=== PATIENT | female | born 1960 | race Caucasian/White ===

== ENCOUNTER 2019-05-16 09:25 | Emergency (ER) | payer OTHER ==
[~2019-05-16] VITALS: Ht 170.2 cm; Wt 82.6 kg
[~2019-05-16 09:25] MED LIST: AMLO-150 PO; ATOR40TA78 PO; BIOT300T5 PO; CYCL-259 PO; ENAL20TA PO; ERGO500017 PO; LINA5TAB PO; LORA10TA72 PO; OMEG1CAP34 PO; SODI650T PO
--- NOTE | 2019-05-16 10:01 | NUR ---
PT TO ED AFTER TRIPPING OVER DOG YESTERDAY AT 2130. PT STATES SHE HELD OUT LEFT ARM TO CATCH HERSELF AND HEARD TWO LOUD "POP" NOISES WHEN ARM HIT AGAINST WALL. PT STATES TYLENOL IS NO LONGER HELPING PAIN. PT STATES PAIN WORSE WITH MOVEMENT. PT ABLE TO TOUCH LEFT HAND TO RIGHT SHOULDER. PT CONNECTED TO MONTIORS. VSS. XR ORDER RECEVED ADN COMPLETED. AWAITING XR RESULTS AND EDMD ASSESSMENT.
[2019-05-16] MEDS ORDERED: KETOROLAC 30 MG/1 ML IM ONE (10:30)
[2019-05-16] MEDS ORDERED: KETOROLAC 30 MG/1 ML ONE (10:31)
[2019-05-16 11:14] VITALS: BP 143/71
== END 2019-05-16 11:17 | disposition home or self-care (01) ==
LOC: ED 10:26
DX: S43.422A Sprain of left rotator cuff capsule, initial encounter (principal); E11.22 Type 2 diabetes mellitus with diabetic chronic kidney disease; I12.0 Hypertensive chronic kidney disease with stage 5 chronic kidney disease or end stage renal disease; N18.6 End stage renal disease; W18.30XA Fall on same level, unspecified, initial encounter; Y93.89 Activity, other specified; Y92.009 Unspecified place in unspecified non-institutional (private) residence as the place of occurrence of the external cause; Y99.8 Other external cause status
CPT/HCPCS: 73030; 96372; 99283; J1885